=== PATIENT | female | born 1955 | race Caucasian/White ===

== ENCOUNTER → 2025-04-02 | Outpatient (CLI) | payer OTHER, SELFPAY ==
--- NOTE | 2025-04-02 10:45 | XR_ITS ---
Examination: MRI thoracic spine without contrast. Date and time of exam: April 02, 2025, 11:56 a.m., comparison May 24, 2006 INDICATIONS: Back pain 2 years after falling off a chair Technique: Multiple sagittal and axial images of the thoracic spine have been obtained. 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
--- NOTE | 2025-04-02 12:00 | XR_ITS ---
Examination: MRI lumbar spine without contrast Date and time of exam: April 02, 2025, 12:17 p.m. INDICATIONS: Low back pain 2 years after falling off a chair Technique: Multiple MRI axial and sagittal sections lumbar spine. Sagittal T2-weighted images, TR 3500, TE 118 T1 weighted transverse sections, TR 688 T8.5, T2-weighted sagittal sections T1 weighted sagittal sections TR 621, TE 30 T2 axial sections, TR 4, 190, TE 84. Findings: Significant magnetic susceptibility artifact secondary to transpedicular fixation L2-L5 Satisfactory alignment lumbar vertebral bodies No acute lumbar fracture Diffuse thoracic disc desiccation L5-S1 no disc protrusion L4-L5 2 mm central lumbar disc bulge L3-L4 no disc protrusion L2-L3 no disc protrusion L1-L2 no disc protrusion IMPRESSION: Satisfactory alignment transpedicular lumbar stabilization L2-L5 No lumbar fracture Diffuse lumbar disc desiccation No significant acquired spinal stenosis
== END | disposition home or self-care (01) ==
LOC: SMRI 10:22
PROVIDERS: PCP Family Medicine; Referring Provider Family Medicine; Visit Provider Family Medicine
DX: M85.88 Other specified disorders of bone density and structure, other site (principal); M40.294 Other kyphosis, thoracic region; M81.8 Other osteoporosis without current pathological fracture; M54.50 Low back pain, unspecified; S39.92XS Unspecified injury of lower back, sequela; W19.XXXS Unspecified fall, sequela
CPT/HCPCS: 72146; 72148